=== PATIENT | female | born 1935 | race Caucasian/White ===

== ENCOUNTER 2019-05-15 23:43 | Emergency (ER) | payer MEDICARE ==
[2019-05-15] MEDS ORDERED: Lidocaine 1% w/Epinephrine 1:100K 20 ML VIAL ONE (23:51)
[2019-05-15] MEDS ORDERED: Oxymetazoline HCl 0.05% (30 ML BOT) ONE (23:52)
[2019-05-16] MEDS ORDERED: Tranexamic Acid 1,000 MG/10 ML VIAL ONE (00:34)
[2019-05-16] MEDS ORDERED: Lorazepam 1 MG TAB ONE (02:44)
[2019-05-16] MEDS ORDERED: Cephalexin 250 MG CAP ONE ×2 (02:45→02:46)
[2019-05-16] MEDS ORDERED: Morphine 2 MG/ML SYRINGE ONE (04:04)
[2019-05-16] MEDS ORDERED: cloNIDine 0.1 MG TAB ONE (04:35)
== END 2019-05-16 05:30 | disposition home or self-care (01) ==
LOC: ERS 23:43
DX: R04.0 Epistaxis (principal)
CPT/HCPCS: 30903; 96372; J2001; J2270

== ENCOUNTER 2019-05-27 10:37 | Emergency (ER) | payer MEDICARE ==
[2019-05-27] MEDS ORDERED: Labetalol HCl 100 MG/20 ML VIAL ONE (11:50)
[2019-05-27] MEDS ORDERED: Oxymetazoline HCl 0.05% ( 15 ML ) NASAL SCH (12:00)
[2019-05-27 12:24] LABS: #Eosinphils 0.3 thou/uL (0.0-0.7); #Lymphocytes 0.9 thou/uL (1.20-3.40); #Monocytes 1.1 thou/uL (0.11-0.59); #Neutrophils 8.2 thou/uL (1.40-6.50); %Basophils 0.2 % (0.0-1.0); %Eosinophils 3.1 % (0.0-10.0); %Lymphocytes 8.7 % (21.0-51.0); %Monocytes 10.6 % (0.0-10.0); %Neutrophils 77.4 % (42.0-75.0); Hemoglobin 10.2 g/dL (12.0-16.0); Mean Corpuscular HGB CONC 31.7 g/dL (32.0-36.0); Mean Corpuscular Volume 97.8 fL (78.0-98.0); Mean Platelet Volume 6.4 fL (7.4-10.4); Platelet Count 302 thou/uL (130-400); RBC Distribution Width 12.3 % (11.5-14.5); White Blood Cell (WBC) Count 10.6 thou/uL (4.8-10.8)
[2019-05-27 12:35] LABS: PTT 35.1 SEC (22.9-36.1); Prothrombin Time 13.4 SEC (12.0-14.7)
[2019-05-27 12:44] LABS: ALT (SGPT) 32 U/L (8-55); AST (SGOT) 30 U/L (5-34); Albumin 3.6 g/dL (3.4-4.8); Alkaline Phosphatase 64 U/L (40-150); Anion Gap 13 mmol/L (10-20); BUN (Urea Nitrogen) 18 mg/dL (9.8-20.1); Bilirubin, Total 0.3 mg/dL (0.2-1.2); Calc. Creatinine Clearance 0 mL/min (70-130); Calcium 9.4 mg/dL (7.8-10.44); Carbon Dioxide 34 mmol/L (23-31); Chloride 95 mmol/L (98-107); Estimated GFR-MDRD 53; Glucose 87 mg/dL (83-110); Potassium 4.6 mmol/L (3.5-5.1); Protein, Total 6.6 g/dL (6.0-8.3); Sodium 137 mmol/L (136-145)
[2019-05-27] MEDS ORDERED: Oxymetazoline HCl 0.05% (30 ML BOT) NS SCH (12:45)
== END 2019-05-27 13:38 | disposition home or self-care (01) ==
LOC: ERS 10:37
DX: R04.0 Epistaxis (principal); I10 Essential (primary) hypertension; D64.9 Anemia, unspecified; I48.91 Unspecified atrial fibrillation; F41.9 Anxiety disorder, unspecified; F32.9 Major depressive disorder, single episode, unspecified; Z79.899 Other long term (current) drug therapy
CPT/HCPCS: 36415; 80053; 85025; 85610; 85730; 94760; 96374